=== PATIENT | male | born 1945 | race Caucasian/White ===

== ENCOUNTER 2019-05-21 06:55 | Day surgery (SDC) | payer MEDICARE, BC ==
[~2019-05-21] VITALS: Ht 188 cm; Wt 107.0 kg
[~2019-05-21 06:55] MED LIST: BUPIVACAINE LIPOSOME/PF 10ML INFIL ONE
[2019-05-21] MEDS ORDERED: BUPIVACAINE LIPOSOME/PF 10ML INFIL ONE (07:11)
[2019-05-21] MEDS ORDERED: ACETAMINOPHEN 500 MG TABLET PO ONE (07:30)
[2019-05-21] MEDS ORDERED: GABAPENTIN 300 MG CAPSULE PO ONE (07:30)
[2019-05-21] MEDS ORDERED: NEBI5TAB3 PO (07:45)
[2019-05-21] MEDS ORDERED: EMPA25TA PO (07:45)
[2019-05-21] MEDS ORDERED: UBID100C41 PO (07:45)
[2019-05-21] MEDS ORDERED: MULT-658 PO (07:45)
[2019-05-21] MEDS ORDERED: SITA100T PO (07:45)
[2019-05-21] MEDS ORDERED: GLUC1TAB91 PO (07:45)
[2019-05-21] MEDS ORDERED: BENA10TA6 PO (07:45)
[2019-05-21] MEDS ORDERED: GLYB5TAB3 PO (07:45)
[2019-05-21] MEDS ORDERED: LACTATED RINGERS 1,000 ML IV SCH (07:45)
[2019-05-21] MEDS ORDERED: PIOG45TA64 PO (07:45)
[2019-05-21] MEDS ORDERED: ATOR20TA37 PO (07:45)
[2019-05-21] MEDS ORDERED: CYAN100014 PO (07:45)
[2019-05-21] MEDS ORDERED: MAGNESIUM PO (07:45)
[2019-05-21] MEDS ORDERED: ACAR100T9 PO (07:45)
[2019-05-21] MEDS ORDERED: METF1000 PO (07:45)
[2019-05-21] MEDS ORDERED: COD1CAPS2 PO (07:45)
[2019-05-21] MEDS ORDERED: VITAMIN D PO (07:45)
[2019-05-21] MEDS ORDERED: OMEP20TA62 PO (07:45)
[2019-05-21 07:48] VITALS: BP 116/68
[2019-05-21 08:18] LABS: ALANINE AMINOTRANSFERASE 26 U/L (12-78); ALBUMIN 3.9 g/dL (3.4-5.0); CALCIUM 9.4 mg/dL (8.5-10.1); CHLORIDE 113 mmol/L (98-107); CREATININE 0.92 mg/dL (0.7-1.3)
[2019-05-21 08:21] LABS: ALKALINE PHOSPHATASE 96 U/L (45-117); ANION GAP 8 mmol/L (5-15); BILIRUBIN,TOTAL 0.7 mg/dL (0.2-1.0); TOTAL PROTEIN 7.6 g/dL (6.4-8.2)
[2019-05-21] MEDS ORDERED: FENTANYL PF 250 MCG/5ML ONE (08:21)
[2019-05-21] MEDS ORDERED: MIDAZOLAM 1 MG/ML, 2ML ONE (08:21)
[2019-05-21] MEDS ORDERED: TEMPLATE NON-FORMULARY MED. (Omeprazole Magnesium** (Prilosec Otc**) 20 MG) PO SCH (09:00)
[2019-05-21] MEDS ORDERED: ACARBOSE 100 MG PO SCH (09:00)
[2019-05-21] MEDS ORDERED: TEMPLATE NON-FORMULARY MED. (Metformin Hcl** (Glucophage**) 1,000 MG) PO SCH (09:00)
[2019-05-21] MEDS ORDERED: PIOGLITAZONE HCL 45 MG PO SCH (09:00)
[2019-05-21] MEDS ORDERED: MULTIVITAMIN 1 TABLET PO SCH (09:00)
[2019-05-21] MEDS ORDERED: BENAZEPRIL 10 MG TABLET PO SCH (09:00)
[2019-05-21] MEDS ORDERED: GlyBURIDE 5 MG TABLET PO SCH (09:00)
[2019-05-21] MEDS ORDERED: TEMPLATE NON-FORMULARY MED. (Sitagliptin Phosphate** (Januvia**) 100 MG) PO SCH (09:00)
[2019-05-21] MEDS ORDERED: BUPIVACAINE/PF-EPI 0.5% 1:200K ONE (09:12)
[2019-05-21] MEDS ORDERED: LIDOCAINE 1%-EPI 1:100K, 20ML ONE (09:12)
[2019-05-21] MEDS ORDERED: PROPOFOL 10 MG/ML, 20ML ONE (09:21)
[2019-05-21] MEDS ORDERED: NORTRIPTYLINE 25 MG CAPSULE ONE (09:21)
[2019-05-21] MEDS ORDERED: ONDANSETRON 2MG/ML, 2ML ONE (09:21)
[2019-05-21] MEDS ORDERED: CEFAZOLIN 1,000 MG ONE (09:21)
[2019-05-21] MEDS ORDERED: ROCURONIUM 10 MG/ML,10ML ONE (09:21)
[2019-05-21] MEDS ORDERED: LIDOCAINE 1%, 20ML INFIL ONE (09:49)
[2019-05-21] MEDS ORDERED: BUPIVACAINE/PF-EPI 0.5% 1:200K INFIL ONE (09:49)
[2019-05-21] MEDS ORDERED: NEOSPORIN OINT, 15GM ONE (09:55)
[2019-05-21] MEDS ORDERED: OXYcodone 5 MG/5 ML ORAL.SOL UDC PO PRN (10:30)
[2019-05-21] MEDS ORDERED: PROMETHAZINE 25 MG/ML, 1ML IV PRN (10:30)
[2019-05-21] MEDS ORDERED: LABETALOL 5MG/ML, 20ML IV PRN (10:30)
[2019-05-21] MEDS ORDERED: FENTANYL PF 100 MCG/2ML IV PRN (10:30)
[2019-05-21] MEDS ORDERED: KETOROLAC 30 MG/1 ML IV PRN (10:30)
[2019-05-21] MEDS ORDERED: ONDANSETRON 2MG/ML, 2ML IVPush PRN (10:30)
[2019-05-21] MEDS ORDERED: MEPERIDINE/PF 25MG/0.5ML IVPush PRN (10:30)
[2019-05-21] MEDS ORDERED: HYDROmorphone 1 MG/ML, 1ML INJ IV PRN (10:30)
[2019-05-21] MEDS ORDERED: ALBUTEROL SULFATE 2.5 MG/3 ML NPPB PRN (10:30)
[2019-05-21] MEDS ORDERED: METOCLOPRAMIDE 5 MG/ML, 2ML IV PRN (10:30)
[2019-05-21] MEDS ORDERED: hydrALAzine 20 MG/ML, 1ML IV PRN (10:30)
[2019-05-21] MEDS ORDERED: ATORVASTATIN 20 MG TABLET PO SCH (21:00)
[2019-05-22] MEDS ORDERED: NEBIVOLOL HCL 5 MG TABLET PO SCH (06:00)
== END 2019-05-21 15:05 | disposition home or self-care (01) ==
LOC: OUT 06:55
PROVIDERS: ATTEND Orthopaedic Surgery
DX: S46.011A Strain of muscle(s) and tendon(s) of the rotator cuff of right shoulder, initial encounter (principal); S43.431A Superior glenoid labrum lesion of right shoulder, initial encounter; S46.111A Strain of muscle, fascia and tendon of long head of biceps, right arm, initial encounter; M75.41 Impingement syndrome of right shoulder; M19.011 Primary osteoarthritis, right shoulder; M65.811 Other synovitis and tenosynovitis, right shoulder; I10 Essential (primary) hypertension; I48.91 Unspecified atrial fibrillation; E11.9 Type 2 diabetes mellitus without complications; Z79.84 Long term (current) use of oral hypoglycemic drugs; Z79.891 Long term (current) use of opiate analgesic; Z79.899 Other long term (current) drug therapy; Z87.891 Personal history of nicotine dependence; X58.XXXA Exposure to other specified factors, initial encounter; Y93.89 Activity, other specified; Y92.89 Other specified places as the place of occurrence of the external cause; Y99.8 Other external cause status
CPT/HCPCS: 29823; 29824; 29826; 29827; 36415; 64415; 80053; 82962; 93005; C1713; J0690; J2250; J2405; J2704; J3010; J3490; J7120